=== PATIENT | male | born 1980 | race Caucasian/White ===

== ENCOUNTER 2023-09-28 14:06 | Emergency (ER) | payer OTHER ==
[~2023-09-28] VITALS: Ht 188 cm; Wt 67.1 kg
[2023-09-28 14:08] VITALS: BP 122/80; PULSE 102; RESP 17; TEMP 98.1; O2SAT 98
[2023-09-28] MEDS: NACL 0.9% 1,000 ML IV ONE (14:55)
[2023-09-28] MEDS: ONDANSETRON 4 MG/2 ML VIAL IVP ONE (14:58)
[2023-09-28 15:11] VITALS: BP 133/81; PULSE 114; RESP 13
[2023-09-28 15:13] VITALS: O2SAT 96
== END 2023-09-28 16:18 | disposition home or self-care (01) ==
LOC: MED 14:06
DX: F10.129 Alcohol abuse with intoxication, unspecified (principal); Y90.9 Presence of alcohol in blood, level not specified
CPT/HCPCS: 96361; 96374; 99283; J2405; J7030